=== PATIENT | male | born 1985 | race African-American/Black ===

== ENCOUNTER → 2016-09-03 | Outpatient (CLI) | payer OTHER ==
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
== END ==
LOC: M RAD 08:58
PROVIDERS: ATTEND Surgery
DX: M54.5 Low back pain (principal)